=== PATIENT | male | born 1940 | race Caucasian/White ===

== ENCOUNTER 2018-01-15 10:17 | Inpatient (IN) | payer MEDICARE, MEDICAID ==
[2018-01-15] MEDS ORDERED: NS 0.9% 1000 ML* 1,000 ML IV ONE (10:39)
[2018-01-15] MEDS ORDERED: Nitroglycerin TAB 0.4 MG* 0.4 MG TAB ONE (10:47)
[2018-01-15] MEDS ORDERED: Aspirin 81 mg CHEW TAB* 81 MG TAB.CHEW ONE (10:47)
[2018-01-15] MEDS ORDERED: Heparin for STEMI(*) 5,000 UNITS/ML 1 ML VIAL IV ONE ×2 (10:47→10:48)
[2018-01-15] MEDS ORDERED: Aspirin 81 mg CHEW TAB* 81 MG TAB.CHEW PO ONE (10:48)
[2018-01-15] MEDS ORDERED: Ticagrelor* 90 MG TAB PO ONE ×2 (10:48)
--- NOTE | 2018-01-15 10:53 | ED ---
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 Patient states the pain became worse during mass prior to arrival. The patient rates the pain 9/10 in severity. Symptoms aggravated by nothing. Symptoms alleviated by nothing. Patient reports diffuse diaphoresis. Patient denies SOB, dizziness, abd pain, nausea, vomiting, fever, and loss of strength. Patient states he took Aspirin (unsure of the age of the pills or the dosage) prior to arrival. Patient denies a history of MT. Pt takes losartan and prostate medications. Denies hx DM, hyperlipidemia. Pt has a right facial droop since due to forceps delivery. Home Medications Medication Instructions Recorded Confirmed Type Finasteride TAB* [Proscar TAB*] 5 mg PO DAILY 12/19/14 12/19/14 History Lisinopril TAB* mg PO DAILY 12/19/14 12/19/14 History Losartan TAB* mg PO 01/15/18 History Tamsulosin CAP* mg PO 01/15/18 History - History of Current Complaint Chief Complaint: EDChestPainROMI Hx Obtained From: Patient Onset/Duration: Started Days Ago, Atraumatic, Still Present Timing: Intermittent, Lasting Days Initial Severity: Severe Current Severity: Severe Pain Intensity: 9 Pain Scale Used: 0-10 Numeric Chest Pain Location: Mid Sternal Chest Pain Radiates: No Character: Crushing Aggravating Factor(s): Nothing Alleviating Factor(s): Nothing Associated Signs and Symptoms: Positive: Diaphoresis, Other: - Negative loss of strength.. Negative: Dizziness, Shortness of Breath, Fever, Nausea, Abdominal Pain, Vomiting - Allergy/Home Medications Allergies/Adverse Reactions: Allergies Allergy/AdvReac Type Severity Reaction Status Date / Time Penicillins Allergy Anaphylatic Verified 01/15/18 10:35 Shock Home Medications: Home Medications Losartan TAB* mg PO 01/15/18 [History] Tamsulosin CAP* mg PO 01/15/18 [History] PMH/Surg Hx/FS Hx/Imm Hx Previously Healthy: No Cardiovascular History: Reports: Hx Hypertension Denies: Hx Myocardial Infarction Respiratory History: Denies: Hx Asthma History: Reports: Hx Benign Prostatic Hyperplasia - Surgical History Surgery Procedure, Year, and Place: Bilateral knee replacement. 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 Negative: Fever Positive: Chest Pain Negative: Shortness Of Breath Negative: Abdominal Pain, Vomiting, Nausea Skin: Negative Neurological: Other - Negative dizziness and loss of strength Psychological: Normal All Other Systems Reviewed And Are Negative: Yes Physical Exam - Summary Physical Exam Summary: Appearance: ill-appearing, severe pain distress, well-nourished, diaphoretic, right facial droop pre-existing Skin: Warm, color reflects adequate perfusion Head: Normal Head/Face inspection, atraumatic, right facial droop pre-existing Eyes: Conjunctiva clear ENT: Normal inspection Neck: Supple, no nodes, no JVD, no bruits Respiratory: Lungs clear, normal breath sounds, no respiratory distress Cardio: RRR, No murmur, pulses normal, brisk capillary refill Abdomen: Soft, nontender, no masses, no guarding, no rebound Bowel sounds: Present Musculoskeletal: Strength Intact/ROM intact, no calf tenderness, no edema, distal pulses intact . Psychological: Normal Neuro: Alert, muscle tone normal, no new focal deficit, right facial droop pre- existing Triage Information Reviewed: Yes Vital Signs On Initial Exam: Initial Vitals Temp Pulse Resp BP Pulse Ox 97.0 F 53 16 196/92 96 01/15/18 10:31 01/15/18 10:31 01/15/18 10:31 01/15/18 10:31 01/15/18 10:31 Vital Signs Reviewed: Yes Diagnostics - Vital Signs Vital Signs Temp Pulse Resp BP Pulse Ox 01/15/18 10:31 97.0 F 53 16 196/92 96 - Laboratory Result Diagrams: 01/15/18 10:45 01/15/18 10:45 Lab Statement: Any lab studies that have been ordered have been reviewed, and results considered in the medical decision making process. - Radiology CXR Radiology Interpretation Completed By: Radiologist - CXR reveals, per radiologist, no evidence for acute disease. ED physician has reviewed this radiology report. - EKG 1039 Cardiac Rate: Bradycardia EKG Rhythm: Sinus Rhythm - 57 BPM EKG Comparison: Other - No prior to compare to Summary of EKG Findings: An EKG at 1039 reveals sinus bradycardia at 57 BPM with nml AV/IV CT, nml QTc, and nml axis, left minus 19, [address] elevation in I and aVL, reciprocal depression in II, III, aVF, and V3 through V6 with inverted T waves. STEMI Re-Evaluation - Re-Evaluation First Eval Re-Evaluation Time: 11:05 Change: Improved Comment: Patient states that the chest pain is still 9/10, but that it has eased a little bit Chest Pain Course/Dx - Course Course Of Treatment: This patient is a 77 year old M presenting to [facility] accompanied by friend with a chief complaint of intermittent, crushing, mid- sternal CP that began yesterday afternoon and was more sustained at approximately 0830 today. Patient states he took Aspirin prior to arrival, so for now we will not give extra aspirin. Patient denies a history of MT. Physical Exam Findings: diaphoretic and right facial droop pre-existing. An EKG at 1039 reveals sinus bradycardia at 57 BPM with nml AV/IV CT, nml QTc, and nml axis, left minus 19, [address] elevation in I and aVL, reciprocal depression in II , III, aVF, and V3 through V6 with inverted T waves. STEMI. CXR reveals, per radiologist, no evidence for acute disease. Bloodwork obtained. In the ED course patient received Aspirin, Lipitor, Heparin, fluids, morphine, Zofran, and Brilinta. Consult with Dr. Aguila (interventional cardiology) at 1049. He recommends patient proceed to lab technologist for procedure. The patient is agreeable with this plan. STEMI called at 1046. Patient to lab technologist at 1116. Heparin 4, 000 U, Brilinta 180mg and ASA 324mg given in ED per STEMI orders and Dr. Owens. Atorvastatin 80mg po per Dr. Owens. Morphine 4mg and zofran 4mg IV also given in ED. - Diagnoses Provider Diagnoses: STEMI (ST elevation myocardial infarction) During the Visit The Following Alert/Code Occurred: STEMI - Called at 1046 - Provider Notifications Discussed Care Of Patient With: Noah Owens Time Discussed With Above Provider: 10:49 Instructed by Provider To: Other - STEMI called. Consult with Dr. Harper ( interventional cardiology) at 1049. He recommends patient proceed to lab technologist for procedure. - Critical Care Time Critical Care Time: 30-74 min - 30 mins Discharge - Sign-Out/Discharge Documenting (check all that apply): Patient Departure [place] [facility] [place] Plan Condition: Stable Disposition: ADMITTED TO [facility] - Billing Disposition and Condition Condition: STABLE Disposition: Admitted to [facility] - Attestation Statements Document Initiated by Scribe: Yes Documenting Scribe: Farheen Dietrich Provider For Whom Mary is Documenting (Include Credential): Dr. Anahi Solomon MD Scribe Attestation: Farheen Tatum, scribed for Dr. Anahi Solomon MD on 01/15/18 at 1806. Scribe Documentation Reviewed: Yes Provider Attestation: The documentation as recorded by the Farheen cheung accurately reflects the service I personally performed and the decisions made by me, Dr. Anahi Solomon MD
[2018-01-15] MEDS ORDERED: Morphine VIAL* 10 MG/ML 1 ML VIAL IV ONE ×2 (10:54→11:13)
[2018-01-15 10:55] LABS: ABS Basophils 0 10^3/ul (0-0.2); ABS Eosinophils 0 10^3/ul (0-0.6); ABS Monocytes 0.5 10^3/ul (0-0.8); ABS Neutrophils 6.2 10^3/ul (1.5-7.7); ABS Nucleated RBC 0 10^3/ul; Eosinophil % 0.2 % (0-6); Hematocrit 47 % (42-52); Hemoglobin 16.5 g/dl (14.0-18.0); Lymphocyte % 13.4 % (25-47); Mean Corpuscular HGB Conc 35 g/dl (31-36); Mean Corpuscular Hemoglobin 32 pg (27-31); Mean Corpuscular Volume 90 fL (80-94); Mean Platelet Volume 7.6 um3 (7.4-10.4); Nucleated Red Blood Cells % 0; Platelet Count 168 10^3/ul (150-450); Red Blood Count 5.19 10^6/ul (4.00-5.40); Red Cell Distribution Width 14 % (10.5-15); White Blood Count 7.8 10^3/ul (3.5-10.8)
[2018-01-15] MEDS ORDERED: Ondansetron INJ* 2 MG/ML VIAL IV ONE (10:55)
[2018-01-15] MEDS ORDERED: Ondansetron INJ* 2 MG/ML VIAL ONE (10:57)
[2018-01-15] MEDS ORDERED: Morphine INJ* 4 MG/ML 1 ML SYRINGE (NEW SYRINGE VERSION) ONE (10:57)
[2018-01-15] MEDS ORDERED: Atorvastatin* 80 MG TAB PO ONE (10:58)
[2018-01-15] MEDS ORDERED: Atorvastatin* 80 MG TAB ONE (10:58)
[2018-01-15 11:04] LABS: INR 0.87 (0.77-1.02)
[2018-01-15] MEDS ORDERED: Heparin(*) 1000 UNIT/ML 10 ML VIAL CATH LAB IV ONE (11:05)
[2018-01-15] MEDS ORDERED: VERAPAMIL 2.5 MG/ML 2 ML VIAL ** 5 mg/2 ml ONE (11:05)
[2018-01-15] MEDS ORDERED: Heparin 2 UNITS/ML IVPREMIX* 3,000 ML IV ONE (11:05)
[2018-01-15] MEDS ORDERED: nitroGLYCERIN DRIP* 25,000 MCG/250 ML BTL ONE ×2 (11:05→11:25)
[2018-01-15] MEDS ORDERED: Lidocaine 1% INJ* 10 MG/ML 30 ML SDV ONE ×2 (11:06→11:10)
[2018-01-15] MEDS ORDERED: Iohexol 350 (CONTRAST) 200 ML MDV IV ONE ×2 (11:06→11:52)
[2018-01-15] MEDS ORDERED: fentaNYL* 50 MCG/ML 2 ML VIAL (100 MCG VIAL) ONE (11:08)
[2018-01-15] MEDS ORDERED: Midazolam* 1 MG/ML 10 ML VIAL (10 MG) ONE (11:08)
[2018-01-15 11:12] LABS: EGFR Non-African American 65.1 (>60)
--- NOTE | 2018-01-15 11:25 | RAD ---
INDICATION: Chest pain. COMPARISON: There are no relevant prior studies available for comparison. TECHNIQUE: A portable view of the chest was obtained. FINDINGS: Cardiac and mediastinal contours appear to be within normal limits. The lungs are clear. No pleural effusion is seen. IMPRESSION: NO EVIDENCE FOR ACUTE DISEASE.
[2018-01-15] MEDS ORDERED: Bivalirudin(*) 250 MG VIAL ONE (11:44)
[2018-01-15] MEDS ORDERED: Acetaminophen TAB* 325 MG PO PRN (12:30)
[2018-01-15] MEDS ORDERED: Nitroglycerin TAB 0.4 MG* 0.4 MG TAB SL PRN (12:30)
[2018-01-15] MEDS ORDERED: NS 0.9% 1000 ML* 400 ML IV SCH (12:30)
[2018-01-15] MEDS ORDERED: Zolpidem TAB* 5 MG PO PRN (12:30)
[2018-01-15] MEDS ORDERED: Docusate CAP* 100 MG PO PRN (12:30)
[2018-01-15] MEDS ORDERED: oxyCODONE/Acetamin 5/325 MG* TAB PO PRN (12:30)
[2018-01-15] MEDS: Metoprolol Tartrate TAB* 25 MG PO SCH ×2 (13:42→21:21)
--- NOTE | 2018-01-15 15:18 | HP ---
CC: Dr. Iman Causey* ADMISSION HISTORY AND PHYSICAL: DATE OF ADMISSION: 01/15/18 CHIEF COMPLAINT: The patient presents with severe chest discomfort with diaphoresis with an EKG suggesting acute ST segment elevation and lateral wall myocardial infarction. HISTORY OF PRESENT ILLNESS: The patient is a 77-year-old gentleman who states he was in his usual state of health until yesterday when he started noticing episodes of chest discomfort that would come and go yesterday. Over the course of yesterday, he did not have persistence of the symptoms and went to bed. In the morning he woke up and noticed they were coming on again but now, more frequently with shorter amounts of relief. At 8:30, he noticed it becoming more severe and almost sustained in nature. It became worse in severity during mass prior to arrival. He was brought to the emergency room with severe chest discomfort with diaphoresis. He denied any significant shortness of breath, nausea, or vomiting. He had taken aspirin. In the emergency room, he was noted to have an acute ST segment elevation, lateral wall myocardial infarction with reciprocal changes inferiorly and in the anterior apical leads. A STEMI alert was called. On arrival, he was still having significant chest discomfort. He was given a bolus of 4000 units of heparin, Brilinta 180 mg, and full-dose aspirin as we were not sure of the dose he had taken. The risks and benefits were explained. He understood them and wished to proceed to the cardiovascular laboratory. As such, decision was then made to go emergently to the cardiovascular laboratory. CARDIAC RISK FACTORS: Include a history of hypertension for some 14 years. He denies any known history of diabetes. Denies any known history of hyperlipidemia. PAST MEDICAL HISTORY: Other past medical history includes prostate problems and he has had a chronic right facial droop from a forceps delivery at . FAMILY HISTORY: He has a family history with a mother who had bypass surgery in her late 50s to 60s and a father who had some type of heart disease that he does not know. SOCIAL HISTORY: He has had no recent smoking history and he had quit in the 1970s. REVIEW OF SYSTEMS: Pertinent to proceeding to the cardiovascular laboratory included a negative history of stroke or TIA. He has no history of known renal disease. He has no history of allergies to contrast or dye. He has no significant history of bleeding, specifically no hematochezia, hematemesis, or hematuria. PHYSICAL EXAMINATION VITAL SIGNS: In the emergency room revealed blood pressure 167/98, pulse 60, respirations 17, O2 saturation 97%. NECK: Was supple without increased JVP. LUNGS: Clear to A and P. HEART: Revealed a regular rate and rhythm without significant systolic or diastolic murmur. ABDOMEN: Obese, soft, nontender. EXTREMITIES: Without edema. Peripheral pulses were intact. Femoral pulses noted bilaterally without bruit. A good radial pulse was present. MUSCULOSKELETAL: He moves all extremities appropriate. NEUROLOGICAL: The patient was alert and oriented. He had the right facial droop as mentioned earlier. PSYCHOLOGICAL: Patient with normal affect. DIAGNOSTIC STUDIES/LAB DATA: Laboratory results to date, prior to the cardiac catheterization, revealed hemoglobin and hematocrit of 16 and 47 with a platelet count of 168,000. Sodium of 142, potassium 3.8, chloride 104, bicarb 25, BUN and creatinine of 24 and 1.1. Troponin initially 0.06, total CPK 165, MB 4.3. Lactic acid was 2.7. SGOT 22, SGPT 29. INR of 0.87. D-dimer was reported at 302. Electrocardiogram in the emergency room timed 10:39 on revealed sinus bradycardia, heart rate 57, J-point elevation in I and aVL with reciprocal changes in II, III, aVF and V4 through 6. OVERALL ASSESSMENT: The patient now presents with an acute ST segment elevation lateral wall myocardial infarction. He has been given heparin, Brilinta, and aspirin. The risks and benefits were explained and he understands and wished to proceed. Further management will be made on the basis of the findings at cardiac catheterization. Of note, I also gave him atorvastatin 80 mg p.o. prior to the cardiac catheterization. [id number]/[facility] #: [id number] [facility]
[2018-01-15] MEDS: Ticagrelor* 90 MG TAB PO SCH (21:21)
[2018-01-15] MEDS: Atorvastatin* 80 MG TAB PO SCH (21:21)
--- NOTE | 2018-01-16 02:59 | CATH ---
CC: Dr. Iman Causey * CARDIAC CATHETERIZATION REPORT: DATE OF PROCEDURE: 01/15/18 - ROOM #ICU-03 REASON FOR CARDIAC CATHETERIZATION: The patient presents with an acute ST segment elevation lateral wall myocardial infarction with a history of intermittent chest discomfort the day prior to presentation with development of severe continuous chest discomfort on the day of the procedure. PROCEDURE: Coronary arteriography, left heart catheterization, primary stenting of the second diagonal branch proximal and ostial portion utilizing a 2.5 x 16 mm long Synergy drug-eluting stent post dilated to 2.65 mm. CONSENT: The patient was interviewed and examined in the emergency room where the risks and benefits were explained. He understood them and wished to proceed. PRECARDIAC CATHETERIZATION LABORATORY RESULTS: Hemoglobin and hematocrit of 16.5 and 47, platelet count of 168,000, BUN 24, creatinine 1.1. Sodium 142, potassium hemolyzed, chloride 104, bicarb 25. APPROACH: Right radial artery with ultrasound in the catheterization laboratory and found to be acceptable for approach. EQUIPMENT UTILIZED: 1. Right radial artery sheath, 6-Nigerien Glidesheath. 2. Diagnostic coronary catheter, a 5-Nigerien TIG4 curve for the right coronary artery with Heartrail 6-Nigerien IL 3.5 curve as well as a 6-Nigerien VL 3.5 curve for the left coronary catheter. 3. The diagnostic guidewire was a Campos 260 length curved wire and a Wholey 260 length exchange wire. 4. The interventional guide catheter - a 6-Nigerien VL 3.5 curve guide catheter. 5. The interventional wire - for the diagonal branch a 190 length All Star wire for the left anterior descending artery, 190 cm BMW wire. 6. The stent placed was a 2.5 x 16 mm long Synergy drug-eluting stent. 7. Post stent deployment balloon - with a 2.5 x 8 mm long NC emerge balloon. MEDICATIONS GIVEN: The patient received: 1. Heparin 4000 units intravenously. 2. Brilinta 180 mg orally. 3. Aspirin 325 mg in the emergency room. In the vat house laborer, he received an Angiomax bolus and Angiomax drip when the ACT was found to be subtherapeutic. The patient received fentanyl 25 mcg intravenous. The patient received intracoronary nitroglycerin and the patient was placed on a nitroglycerin drip starting at 2 mcg increased to as much as 10 mcg. DESCRIPTION OF PROCEDURE: The patient was brought to the cardiovascular laboratory where a formal time-out was performed. The patient was prepped and draped in sterile fashion. Under ultrasound guidance, the right radial artery was cannulated and the sheath was placed. Of note, there were 2 sticks that had to be made to cannulate the right radial artery. The patient received a radial artery cocktail, which included 3 mg of verapamil and 300 mcg of intra- arterial nitroglycerin. Following this, diagnostic coronary arteriography was performed utilizing the TIG4 curve catheter for the right coronary artery and the Heartrail 6-Nigerien IL 3.5 curve and eventually the 6-Nigerien VL 3.5 curve catheter for the left coronary artery. Decision was then made to intervene into the totally occluded second diagonal branch. ACT was checked and found to be subtherapeutic. The patient received an Angiomax bolus and Angiomax drip was started. The All Star wire was advanced across the totally occluded diagonal branch and a BMW wire was placed in the left anterior descending artery. Primary stenting was performed utilizing the 2.5 x 16 mm long Synergy drug-eluting stent post dilated with a 2.5 x 8 mm long NC emerge balloon. The artery was then assessed. At the end of the case, the wires were removed. The catheters were removed and the sheath was removed and hemostasis was obtained with a Vasc Band. The reverse Barbeau was a B. The total contrast used was 325 cc of Omnipaque dye. The radiation exposure included 15 minutes of fluoro time. The air kerma radiation was 5094 microgray. The DAP radiation was 27, 132 microgray per meter squared. RESULTS: HEMODYNAMIC DATA: Central aortic pressure and left ventricular pressure was recorded by the diagnostic coronary catheter, which had fallen into the left ventricle and pull back was obtained. Central aortic pressure was recorded at 155/59 with a mean of 104, left ventricular pressure 151 over left ventricular end-diastolic pressure of 29. CORONARY ARTERIOGRAPHY: A. Left coronary artery. 1. Left main - widely patent with no significant disease. 2. Left anterior descending artery. Left anterior descending artery appeared to be a somewhat smaller caliber in nature with a small first diagonal branch followed by a totally occluded second diagonal branch. The rest of the left anterior descending artery traversed to the apical region, but not well on to the inferior wall. There was a 50% mid lesion seen in the left anterior descending artery. 3. Circumflex artery - a codominant vessel with a bifurcating mid obtuse marginal branch followed by a low lying obtuse marginal branch followed by posterior left ventricular branch and 2 smaller posterior left ventricular branches. There was a 30% narrowing seen in the circumflex artery after the takeoff of the mid bifurcating obtuse marginal branch. B. Right coronary artery - a dominant vessel supplying multiple acute marginal branches and ending at a large posterior descending artery, which traversed the apical region and on to the most distal anterior wall slightly. There was a 50% lesion seen in the distal segment just at the beginning of the posterior descending artery. INTERVENTION INTO SECOND DIAGONAL BRANCH: Successful reduction of 100% total occlusion with primary stenting utilizing a 2.5 x 16 mm Long Synergy drug-eluting stent post dilated to 2.65 mm with CONCHIS 3 flow. No dissection seen and 0% residual stenosis. OVERALL ASSESSMENT: Significant coronary artery disease with a totally occluded second diagonal branch accounting for the acute ST segment elevation lateral wall myocardial infarction successfully treated with primary stenting as described above. The patient does have moderate disease within the mid LAD and the distal right coronary artery. At this point in time, medical management will be pursued with institution of beta-lisa therapy 25 mg b.i.d. The patient was on losartan 25 mg at home and we will assess his blood pressure in the morning to see if it is stable to restart the losartan. He will be on dual antiplatelet therapy for a minimum of 2 year's time and high dose statin therapy, which was already instituted. We will get an echocardiogram to look at overall left ventricular systolic function in the morning. [id number]/[facility] #: [id number] [facility]
[2018-01-16 05:34] LABS: ABS Basophils 0 10^3/ul (0-0.2); ABS Eosinophils 0.1 10^3/ul (0-0.6); ABS Lymphocytes 1.7 10^3/ul (1.0-4.8); ABS Monocytes 0.9 10^3/ul (0-0.8); ABS Neutrophils 8.8 10^3/ul (1.5-7.7); ABS Nucleated RBC 0 10^3/ul; Eosinophil % 0.7 % (0-6); Hematocrit 42 % (42-52); Hemoglobin 14.2 g/dl (14.0-18.0); Lymphocyte % 14.7 % (25-47); Mean Corpuscular HGB Conc 34 g/dl (31-36); Mean Corpuscular Hemoglobin 32 pg (27-31); Mean Corpuscular Volume 93 fL (80-94); Mean Platelet Volume 7.9 um3 (7.4-10.4); Nucleated Red Blood Cells % 0; Platelet Count 153 10^3/ul (150-450); Red Blood Count 4.48 10^6/ul (4.00-5.40); Red Cell Distribution Width 14 % (10.5-15); White Blood Count 11.5 10^3/ul (3.5-10.8)
[2018-01-16 05:41] LABS: EGFR Non-African American 69.4 (>60)
[2018-01-16] MEDS: Ticagrelor* 90 MG TAB PO SCH ×2 (09:24→21:01)
[2018-01-16] MEDS: Aspirin 81 mg CHEW TAB* 81 MG TAB.CHEW PO SCH (09:24)
[2018-01-16] MEDS: Metoprolol Tartrate TAB* 25 MG PO SCH ×3 (10:37→21:49)
--- NOTE | 2018-01-16 14:20 | ECHO ---
Patient: LEONEL BROWN [facility] Rec#: [id number] : 1940 Date: 01/16/2018 Age: 77y Height: 178 cm / 70.1 in Weight: 102 kg / 224.8 lbs Sex: M BSA: 2.2 Room#: ICU 3 Admit Date#: 01/15/2018 Type: Inpatient Referring: Noah Owens MD Reading: Jason Toribio MD Yard Loader Operator: Radha Lazaro RDCS,RDMS CC: Iman Causey MD Transthoracic Echocardiogram Indication: MA BP: 122/68 HR: 69 Rhythm: NSR Findings History: S/P MA and PCI. HTN Technical Comments: The study quality is good. Left Ventricle: The left ventricular chamber size is normal. Mild concentric left ventricular hypertrophy is observed. Basal interventricular septum shows moderate thickening. There is a focal wall motion abnormality present. Left ventricular systolic function is at the lower limits of normal. The estimated ejection fraction is 50-55%. Abnormal left ventricular diastolic function is observed. The mid anterolateral, and apical anterior wall segments are hypokinetic (score 2). The apical lateral wall segment is akinetic (score 3). Overall wallmotion score index is 2.33 Left Atrium: The left atrium is moderately dilated. Right Ventricle: The right ventricular chamber size and systolic function are within normal limits. Right Atrium: The right atrium is mildly dilated. Aortic Valve: The aortic valve is trileaflet. The aortic valve leaflets are moderately thickened. There is aortic annular calcification. There is a trace of aortic regurgitation. There is mild aortic stenosis. The mean gradient of the aortic valve is 10 mmHg. The aortic valve area, by VTI's, is calculated at 1.8 cm2. Mitral Valve: There is mitral annular calcification. The mitral valve leaflets are mildly thickened. There is trace to mild mitral regurgitation. There is no evidence of mitral stenosis. Tricuspid Valve: The tricuspid valve leaflets are normal. There is trace tricuspid regurgitation. No pulmonary hypertension is noted. Pulmonic Valve: The pulmonic valve structure is not well visualized. There is no evidence of pulmonic regurgitation. Pericardium: There is no significant pericardial effusion. Aorta: The aortic root appears normal. There is no dilatation of the aortic arch. Pulmonary Artery: The main pulmonary artery is not well visualized. Venous: The inferior vena cava is not visualized. Summary: There was not any prior study for comparison. Conclusions Mild concentric left ventricular hypertrophy is observed. There is a focal wall motion abnormality present. The estimated ejection fraction is 50-55%. The mid anterolateral, and apical anterior wall segments are hypokinetic (score 2). The apical lateral wall segment is akinetic (score 3). The right ventricular chamber size and systolic function are within normal limits. There is mild aortic stenosis. The mean gradient of the aortic valve is 10 mmHg. There is a trace of aortic regurgitation. There is trace to mild mitral regurgitation. There is trace tricuspid regurgitation. No pulmonary hypertension is noted. There is no significant pericardial effusion. Measurements Name Value Normal Range RVIDd (AP) 2D 3.4 cm (0.9 - 2.6) RVDdMajor (2D) 3 cm (2.2 - 4.4) RAd ISD 4CH 5.6 cm (3.4 - 4.9) RA (A4C)W 3.8 cm (2.9 - 4.6) IVSd (2D) 1.5 cm (0.6 - 1) LVPWd (2D) 1.1 cm (0.6 - 1) LVIDd (2D) 5.3 cm (3.6 - 5.4) LVIDs (2D) 4.1 cm - LV FS (2D) 24 % (25 - 45) Aortic Annulus 2.2 cm (1.4 - 2.6) Ao root diameter (2D) 3.4 cm (2.1 - 3.5) Ascending Ao 3.2 cm (2.1 - 3.4) Aortic arch 3.1 cm (1.8 - 3.4) LA dimension (AP) 2D 4.6 cm (2.3 - 3.8) LAd ISD 4CH 6.3 cm (2.9 - 5.3) LA ISD 4CH W 4.9 cm (2.5 - 4.5) Name Value Normal Range LA ESV BP (A/L) index 46 ml/m2 - Name Value Normal Range MV E-wave Vmax 1 m/sec - MV deceleration time 172 msec - MV A-wave Vmax 0.7 m/sec - MV E:A ratio 1.5 ratio - P. vein S-wave Vmax 0.5 m/sec - P. vein D-wave Vmax 0.3 m/sec - P. vein S:D Vmax ratio 1.6 ratio - P. vein A-wave duration 111 msec - LV septal e' Vmax 0.07 m/sec - LV lateral e' Vmax 0.06 m/sec - LV E:e' septal ratio 14.5 ratio - LV E:e' lateral ratio 16 ratio - Name Value Normal Range AV Vmax 2.2 m/sec - AV VTI 46 cm - AV peak gradient 19 mmHg - AV mean gradient 10 mmHg - LVOT diameter 2 cm - LVOT Vmax 1.3 m/sec - LVOT VTI 27 cm - LVOT peak gradient 7 mmHg - LVOT mean gradient 4 mmHg - DOI (VTI) 0.6 ratio - KELSEA (continuity Vmax) 1.9 cm2 - KELSEA (continuity VTI) 1.8 cm2 - MADISYN Vmax 0.6 m/sec - Name Value Normal Range MV Vmax 1 m/sec - MV VTI 37 cm - MV peak gradient 4 mmHg - MV mean gradient 1 mmHg - MV PHT 99 msec - MVA (PHT) 2.2 cm2 - MVA (continuity VTI) 2.4 cm2 - Name Value Normal Range TR Vmax 2.4 m/sec - TR peak gradient 23 mmHg - RAP 8 mmHg - RVSP 31 mmHg - Wallmotion BAS Not Seen BA Not Seen BAL Not Seen ADRIANNE Not Seen BI Not Seen BIS Not Seen MAS Not Seen MA Not Seen MAL Hypokinetic MIL Not Seen MA Not Seen MIS Not Seen Not Seen AA Hypokinetic AL Akinetic AI Not Seen APEX Hypokinetic
[2018-01-16] MEDS: Finasteride TAB* 5 MG PO SCH (15:25)
[2018-01-16] MEDS: Losartan TAB* 25 MG PO SCH (15:25)
[2018-01-16] MEDS: Tamsulosin CAP* 0.4 MG PO SCH (15:26)
[2018-01-16] MEDS ORDERED: Potassium Chlor TAB* 20 MEQ TAB.ER PO ONE (19:07)
[2018-01-16] MEDS: Atorvastatin* 80 MG TAB PO SCH (21:01)
[2018-01-17 05:44] LABS: EGFR Non-African American 63.1 (>60)
[2018-01-17] MEDS: Metoprolol Succinate XL TAB* 25 MG PO SCH (09:13)
[2018-01-17] MEDS: Tamsulosin CAP* 0.4 MG PO SCH (09:14)
[2018-01-17] MEDS: Losartan TAB* 25 MG PO SCH (09:14)
[2018-01-17] MEDS: Finasteride TAB* 5 MG PO SCH (09:15)
[2018-01-17] MEDS: Aspirin 81 mg CHEW TAB* 81 MG TAB.CHEW PO SCH (09:15)
[2018-01-17] MEDS: Ticagrelor* 90 MG TAB PO SCH ×2 (09:15→20:29)
[2018-01-17] MEDS: Atorvastatin* 80 MG TAB PO SCH (20:29)
[2018-01-18] MEDS: Losartan TAB* 25 MG PO SCH (09:30)
[2018-01-18] MEDS: Aspirin 81 mg CHEW TAB* 81 MG TAB.CHEW PO SCH (09:30)
[2018-01-18] MEDS: Ticagrelor* 90 MG TAB PO SCH (09:31)
[2018-01-18] MEDS: Metoprolol Succinate XL TAB* 25 MG PO SCH (09:31)
[2018-01-18] MEDS: Tamsulosin CAP* 0.4 MG PO SCH (09:31)
[2018-01-18] MEDS: Finasteride TAB* 5 MG PO SCH (09:31)
[2018-01-18 12:09] VITALS: BP 119/61
--- NOTE | 2018-01-18 22:32 | DS ---
DISCHARGE SUMMARY: ADDENDUM: DISCHARGE DIAGNOSES: 1. High lateral ST-elevation infarct. 2. Probable metabolic syndrome. 3. Obesity. 4. Hyperglycemia. 5. Dyslipidemia with high triglycerides. 6. Hypertension. [id number]/[facility] #: [id number] [facility]
--- NOTE | 2018-01-19 04:40 | DS ---
ADDENDUM NOW INCLUDED ON THIS REPORT CC: Dr. Iman Causey; Dr. Murrieta * DISCHARGE SUMMARY: DATE OF ADMISSION: 01/15/18 DATE OF DISCHARGE: 01/18/18 PRIMARY CARE PHYSICIAN: Dr. Iman Causey. PROCEDURE: Cardiac cath, stent placement, first diagonal branch 2.5 x 16 synergy drug-eluting stent. CONDITION ON DISCHARGE: Stable. Follow up wound check with Dr. Owens next week as scheduled, with Dr. Causey as previously. DIET: Low-fat, low-cholesterol, cardiac. ACTIVITY: To avoid strenuous exertion for 1 week, to walk 30 minutes daily, to follow up with cardiac rehab. DISCHARGE MEDS: 1. Aspirin 81 mg daily. 2. Lipitor 80 mg daily. 3. Toprol-XL 25 daily. 4. Nitroglycerin 0.4 sublingual p.r.n. 5. Brilinta 90 mg b.i.d. unchanged. 6. Finasteride 5 mg daily. 7. Tamsulosin 0.4 mg daily. 8. Losartan 25 mg daily. HISTORY: See H and P. LABS: Repeat CBC on 01/16/18 remained stable with hemoglobin of 14.2, normal platelet count. BMP on 01/17/18 stable with normal electrolytes, creatinine 1.13, GFR 63 with admission creatinine of 1.1. Troponin peaked at 49.97 on , CPK-MB at 207.6 at 1738 on 01/15/18 consistent with early washout. Cholesterol, on admission LDL was 44, by direct measure. Total cholesterol on 01/16/18 was 124, triglycerides high at 423, LDL of 41, HDL low at 28.1. EKG post infarct showed typical evolution of high lateral infarct with Q-waves in aVL, poor R-wave progression in V1, V2, and terminal T-wave changes in I and aVL with mildly nonspecific depressed ST segments inferiorly with a QTc of 481 milliseconds. HOSPITAL COURSE: She presented with an acute ST elevation infarct, underwent catheterization by Dr. Owens with the finding of occluded diagonal which was opened and stented. LV function by echo on 01/16/18 reported EF of 50% to 55% with the focal mid anterolateral apical anterior wall motion abnormality. He had no post revascularization complications. He had no angina, heart failure symptoms, palpitations or significant arrhythmias on telemetry. He is ambulatory without any complaints. The right radial access is unremarkable and asymptomatic. On the day of discharge, his vitals are stable, lungs are clear. Cardiac exam is normal. He received full discharge instructions. ADDENDUM: DISCHARGE DIAGNOSES: 1. High lateral ST-elevation infarct. 2. Probable metabolic syndrome. 3. Obesity. 4. Hyperglycemia. 5. Dyslipidemia with high triglycerides. 6. Hypertension. [id number]/[facility] #: [id number] A- [id number]/[facility] #: [id number] [facility]AMPUSCourtney
== END 2018-01-18 14:21 | disposition home or self-care (01) | DRG 247 ==
LOC: ED 10:17 → CHICATH 11:09 → ICU 12:20 → MEDTELE 01-17 05:36
PROVIDERS: ADMIT Internal Medicine Cardiovascular Disease; ATTEND Internal Medicine Cardiovascular Disease
PROC: B2111ZZ Fluoroscopy of Multiple Coronary Arteries using Low Osmolar Contrast (ICD-10-PCS; 2018-01-15)
PROC: 4A023N7 Measurement of Cardiac Sampling and Pressure, Left Heart, Percutaneous Approach (ICD-10-PCS; 2018-01-15)
PROC: 027034Z Dilation of Coronary Artery, One Artery with Drug-eluting Intraluminal Device, Percutaneous Approach (ICD-10-PCS; principal; 2018-01-15 11:15)
DX: I21.29 ST elevation (STEMI) myocardial infarction involving other sites (principal); I25.10 Atherosclerotic heart disease of native coronary artery without angina pectoris; E88.81 Metabolic syndrome and other insulin resistance; E66.9 Obesity, unspecified; R73.9 Hyperglycemia, unspecified; E78.2 Mixed hyperlipidemia; I10 Essential (primary) hypertension; R29.810 Facial weakness; N40.0 Benign prostatic hyperplasia without lower urinary tract symptoms; Z96.653 Presence of artificial knee joint, bilateral; Z96.641 Presence of right artificial hip joint; Z79.82 Long term (current) use of aspirin; Z79.02 Long term (current) use of antithrombotics/antiplatelets; Z68.33 Body mass index [BMI] 33.0-33.9, adult; Z82.49 Family history of ischemic heart disease and other diseases of the circulatory system; Z87.891 Personal history of nicotine dependence; Z88.0 Allergy status to penicillin
CPT/HCPCS: 36415; 71045; 80048; 80053; 80061; 82550; 82553; 83036; 83605; 83721; 83735; 83880; 84145; 84436; 84443; 84484; 85025; 85347; 85379; 85610; 85730; 86850; 86900; 86901; 87641; 93005; 93306; 99285; A9270-GY; C1725; C1769; C1876; C1887; C9606-LD; J0583; J1644; J2250; J2270; J2405; J3010

== ENCOUNTER → 2019-01-03 07:52 | Day surgery (SDC) | payer MEDICARE, MEDICAID ==
[~2019-01-03 07:52] MED LIST: Bacitracin OINTMENT* 0.5% 0.5 oz TUBE ONE; Buffered Lidocaine 1% SYRIN* 1 ML/SYRINGE INTRADERM ONE; Bupivacaine 0.25% EPI 200,000* 30 ML SDV ONE; Clindamycin 900 MG/D5W BAG(*) 900 MG/50 ML BAG IVPB ONE; Dexamethasone TAB* 4 MG ONE; Dexamethasone TAB* 4 MG PO ONE; DiMENhydriNATE IV* 50 MG/ML VIAL IV PUSH PRN; Famotidine IV* 10 MG/ML 2 ML (20 mg) IV ONE; Famotidine IV* 10 MG/ML 2 ML (20 mg) ONE; Gentamicin ADULT (*) 350 MG in NS 0.9% 100 ML* 100 ML IVPB ONE; HYDROmorphone INJ1* 1 MG/ML SYRINGE IV PRN; HYDROmorphone INJ1* 1 MG/ML SYRINGE ONE; KETAMINE HCL* 50 MG/ML 10 ML VIAL ONE; Lactated Ringers 1000 ML Bag* 1,000 ML IV SCH; Lidocaine 2% PF * 5 ML VIAL ONE; Midazolam* 1 MG/ML 2 ML VIAL (2 MG) ONE; Naloxone* 0.4 MG/ML 1 ML VIAL IV PRN; Norepinephrine VIAL* 1 MG/ML 4 ML VIAL ONE; Ondansetron ODT TAB* 4 MG ONE; Ondansetron ODT TAB* 4 MG PO ONE; PROCHLORPERAZINE INJ 5 MG/ML 2 ML VIAL IV PRN; Phenylephrine 40 MCG/ML SYRINGE ONE; Propofol* 10 MG/ML 20 ML BTL ONE; Rocuronium* 10 MG/ML VIAL ONE; Sugammadex * 200 MG/2 ML VIAL IV PUSH ONE; fentaNYL* 50 MCG/ML 2 ML VIAL (100 MCG VIAL) IV PRN; fentaNYL* 50 MCG/ML 2 ML VIAL (100 MCG VIAL) ONE; oxyCODONE/Acetamin 5/325 MG* TAB ONE; oxyCODONE/Acetamin 5/325 MG* TAB PO PRN
--- NOTE | 2019-01-03 11:59 | OP ---
Operative Report - Blank - Operative Report Date of Operation: 01/03/19 Note: Operative Note Preoperative Dx: Umbilical hernia, Cholelithiasis Postoperative Dx: Same Procedure: Open Repair of Umbilical Hernia, Laparoscopic Cholecystectomy Anesthesia: ROSA M Barnett Bradley Surgeon: Dr Luis [employer] Electrician: STAN Flores EBL: Minimal Specimen: GB and Hernia Sac fluids:LR 1200cc Drains:none Findings:as above
[2019-01-03 14:14] VITALS: BP 112/72
--- NOTE | 2019-01-03 22:34 | OP ---
CC: Dr. Joni Camacho; Dr. Iman Causey * DATE OF OPERATION: 01/03/19 - [facility] DATE OF : 42 SURGEON: Jorge Luis MD. EMBEDDED SOFTWARE MANAGER: ZENA Gallegos. ANESTHESIOLOGIST: Dr. Mccrary. ANESTHESIA: General anesthesia. PRE-OP DIAGNOSES: 1. Umbilical hernia. 2. Cholecystitis. POST-OP DIAGNOSES: 1. Umbilical hernia. 2. Cholecystitis. OPERATIVE PROCEDURE: Laparoscopic cholecystectomy and primary umbilical hernia repair. ESTIMATED BLOOD LOSS: Minimal. FLUIDS: Crystalloid fluid given, see Anesthesia documentation for numbers. SPECIMENS: 1. Hernia sac. 2. Gallbladder with contents. DRAINS: None. COMPLICATIONS: None. DESCRIPTION OF PROCEDURE: The patient was identified in the preoperative area. He was marked, brought to the operating room, and placed on the operating table in supine position. Preoperative antibiotics were given. Sequential devices were placed on bilateral lower extremities. General anesthesia was induced. The patient's abdomen was clipped of hair and prepped and draped in standard surgical fashion. A time-out was performed. An infraumbilical incision was made. This was deepened down to the anterior fascia inferiorly and also laterally. The umbilical skin was sharply lysed off the hernia sac. Hernia sac was entered and we resected the hernia sac and then placed a 12 mm blunt port through the hernia defect. The abdomen was then allowed to insufflate to a pressure of 15 mmHg. The patient tolerated the insufflation well. Laparoscope was inserted through this and there was no evidence of injury from the trocar insertion. Review of the abdomen showed a small appearing gallbladder. Additional trocars were then placed in the following position: A 5 mm in the subxiphoid area and two 5 mm along the right costal margin. Table was positioned appropriately. The fundus of the gallbladder had a lodged stone that would not move. We were able to grasp the top portion of the gallbladder and elevate it anteriorly. The infundibular region showed signs of chronic inflammation. We were able to take the peritoneum off the medial aspect of the gallbladder and off the lateral aspect. We did enter into the gallbladder quickly at these sites with thin bile noted. Additional dissection was carried out to expose the cystic duct as this was the only duct extending into the structure. Cystic artery was isolated. It was doubly clipped and ligated. This allowed us to assure ourselves that we had only one structure going to the gallbladder at this point. We dissected posteriorly as well. The cystic duct was then doubly clipped and ligated and the gallbladder was removed from the liver bed and placed in an endoscopic retrieval bag. This was brought out through the umbilical port site. It did require stretching the umbilical defect somewhat to get the stone out. The endoscopic did break during this procedure, but the gallbladder contents remained in. The only issue was the stone that was lodged at the fundus. We then passed this off as specimen and irrigated the wound and placed the blunt 12 -mm trocar back in. Attention was then turned towards the gallbladder fossa. We did drop another stone during the dissection. This was picked up with a stone forceps. We then irrigated. Review of the dissected area showed no bleeding and no bile. We then allowed the abdomen to collapse. Trocars were removed under direct vision and attention was turned towards the umbilicus. We closed this with interrupted #1 Prolene sutures using 4 sutures in all. The wound was then irrigated and umbilical skin tacked down with 2-0 Vicryl sutures and all additional skin incisions were reapproximated with 4-0 Monocryl subcuticular sutures. Steri-Strips and sterile dressing were applied. The patient tolerated the procedure well, was woken up in the OR, and transferred to the PACU in stable condition. [id number]/[facility] #: [id number] GIL
== END | disposition home or self-care (01) ==
LOC: OR 07:52
PROVIDERS: ATTEND Surgery
DX: K80.10 Calculus of gallbladder with chronic cholecystitis without obstruction (principal); K42.9 Umbilical hernia without obstruction or gangrene; I25.10 Atherosclerotic heart disease of native coronary artery without angina pectoris; Z87.891 Personal history of nicotine dependence; Z79.01 Long term (current) use of anticoagulants; I25.2 Old myocardial infarction; I10 Essential (primary) hypertension; I35.0 Nonrheumatic aortic (valve) stenosis; E78.5 Hyperlipidemia, unspecified; E66.9 Obesity, unspecified
CPT/HCPCS: 88302; 88304; A9270-GY; J1170; J1580; J2250; J2704; J3010; J8540